=== PATIENT | female | born 1980 | race Caucasian/White ===

== ENCOUNTER → 2022-06-18 16:39 | Outpatient (CLI) | payer MEDICAID, SELFPAY ==
--- NOTE | 2022-06-18 16:30 | RT.EKG_ITS ---
APPROVED REPORT Exam: Resting ECG Reason for Exam: Back/neck pain Patient Location: O HR:72 bpm ECG Measurements Heart Rate 72 AXIS NV 161 P 19 QRSd 83 QRS 60 QT 398 T 43 QTc 436 Conclusion Sinus rhythm...normal P axis, V-rate 50- 99 Normal Electrocardiogram
--- NOTE | 2022-06-18 17:15 | DI.RAD_ITS ---
Exam(s) XR SHOULDER RT COMPLETE 2+V EXAM: XR SHOULDER RT COMPLETE 2+V CLINICAL HISTORY: evaluate for etiology of scapular pain TECHNIQUE: COMPARISON: No exams were available for comparison FINDINGS: Four views were obtained. The cartilaginous joint space of the glenohumeral joint appears fairly wel l maintained. No bony or soft tissue abnormality seen. IMPRESSION: Negative examination of the shoulder. RADIATION DOSE DELIVERED: Total DLP
--- NOTE | 2022-06-18 17:58 | DI.VRAD_ITS ---
PROCEDURE INFORMATION: Exam: XR Right Shoulder Exam date and time: 06/18/2022 5:29 PM Age: 42 years old Clinical indication: Other: Evaluate for etiology of scapular pain TECHNIQUE: Imaging protocol: Radiologic exam of the Right shoulder. Views: 2 or more views. COMPARISON: No relevant prior studies available. FINDINGS: Bones/joints: Normal. Soft tissues: Normal. IMPRESSION: No acute findings. Dictated and Authenticated by: Guanakito Campa MD. Ordering:KAYLA Jones MD
== END ==
LOC: DI.CM 16:40 → DI 17:20
PROVIDERS: Visit Provider Nurse Practitioner Family
DX: R07.89 Other chest pain (principal); M25.511 Pain in right shoulder; M54.2 Cervicalgia
CPT/HCPCS: 73030

== ENCOUNTER 2022-07-11 01:24 | Emergency (ER) | payer MEDICAID, SELFPAY ==
[2022-07-11 01:36] VITALS: BP 155/93; PULSE 98; RESP 18; TEMP 36.6; O2SAT 97
--- NOTE | 2022-07-11 01:58 | ED.GENADUL_ITS ---
Discharge Plan Disposition Patient Disposition: Home Condition: Stable Discharge Details Clinical Impression: Amplified musculoskeletal pain, localized Primary Care Provider: [facility] Provider: Vern Van Home Meds and New Rx's Prescriptions: New oxycodone 5 mg capsule 5 mg PO BID PRN (Reason: pain) Qty: 5 0RF Discharge Instructions Additional Instructions: Our care management team will assist in setting up a primary care appointment for you. May use the provided oxycodone if needed for severe or breakthrough pain. No alcohol, driving, or other sedating medications with this medicine. Remove the Lidoderm patch in 12 hours time. Further Lidoderm patches are available [id number]. Return if you develop a rash, increasing discomfort, or any other acute concerns. Discharge Data Discharge Date/Time-TO BE ENTERED AT DEPARTURE: 07/11/22 02:26 Medical Decision Making 42-year-old female who has been struggling with right neck and shoulder pain for months now. She is seen physical therapy, chiropractic services, deep tissue massage, as well as orthopedics. She has tried Tylenol, ibuprofen, Flexeril, and a single Vicodin for the pain and tonight also tried edible marijuana. She noted at home that she had difficulty urinating. She denies use of antihistamines. Patient arrives to the ER alert, interactive, in some moderate distress due to pain. Her exam is reassuring but does note some tenderness over the right suprascapular region. She does not have any motor or sensory deficit. Urinalysis obtained We will have the patient establish primary care. She is offered a small number of analgesics for home. Given the chronicity of this complaint I do not feel further emergent work-up is indicated at this time. Sign Out No HPI General Mode of arrival: ambulatory . Date/Time Provider Initiated Documentation: 07/11/22 01:36 . Limitations to Documentation: no limitations . Information obtained by: patient . History of Present Illness 42 year old F presents to the emergency department with the chief complaint of Right neck and shoulder pain over months time, described as moderate, Quality is described as constant, and is localized to the neck, right and upper extremity. Patient started experiencing this month(s) and it has been intermittent. No relieving factors improve symptom(s), No exacerbating factors reported . Patient notes denies fever/chills, headaches, rash and shortness of breath. P atient did receive the following treatments prior to arrival, NSAID and other (Marijuana) Related Data Home Medications Medication Instructions Recorded Confirmed oxycodone 5 mg capsule 5 mg PO BID PRN pain #5 caps 07/11/22 Previous Rx's Medication Instructions Recorded oxycodone 5 mg capsule 5 mg PO BID PRN pain #5 caps 07/11/22 Allergies Allergy/AdvReac Type Severity Reaction Status Date / Time No Known Allergies Allergy Verified 07/09/22 13:01 General Stated Complaint: GenMedical MARYANN: 4 Review of Systems Narrative: No new motor weakness or numbness, no rash. Had difficulty urinating at home this evening. Tried marijuana for the pain. 6 systems reviewed and otherwise negative PFSH All Active Problems (Updated 07/11/22 @ 02:07 by Vern Van MD) Cervicalgia (Acute) Radial tunnel syndrome of right upper extremity (Acute) Amplified musculoskeletal pain, localized (Acute) Scapulothoracic bursitis of right shoulder (Acute) Social History Smoking/Tobacco Use Status: Never Smoking risk assessment performed?: Yes Alcohol Intake: current Alcohol Intake frequency: a few times a month Alcohol type: beer and wine Drug use: Rarely Substance use type: marijuana Details: Used THC for pain today Current gender identity: female Do you feel safe at home: Yes Do you feel safe in your relationship?: Yes Exam Narrative Exam Narrative: GEN: awake, alert, oriented 3. Pleasant, well groomed, interactive. HEAD: Normocephalic, atraumatic EYES: PERRL, EOMI NECK: Full ROM, no NUNO, no menigismus CHEST/RESP: Nontender, clear to auscultation bilateral, no wheeze/rhonchi/rales CARDIOVASCULAR: RRR, no murmur, rub farrah. 2+ Rad pulse bilateral ABDOMEN: Soft, nontender, no mass. +Bowel sounds EXT: Full ROM, no edema, no rash. Normal motor function of the upper extremity. Normal sensory testing.tenderness over the right suprascapular region. Neuro: Grossly normal neurologic exam, conversant, interactive. Psych: Speech fluent, thoughts congruent, affect normal Course Vital Signs Vital signs: Vital Signs Temperature 36.6 C 07/11/22 01:36 Pulse 98 H 07/11/22 01:36 Respiratory Rate 18 07/11/22 01:36 Blood Pressure 155/93 H 07/11/22 01:36 Pulse Oximetry 97 07/11/22 01:36 Temperature 36.6 C 07/11/22 01:36 Temperature Source Temporal Artery Scan 07/11/22 01:36 Pulse 98 H 07/11/22 01:36 Respiratory Rate 18 07/11/22 01:36 Respiratory Effort 07/11/22 01:44 Respiratory Depth Normal 07/11/22 01:44 Respiratory Pattern Normal 07/11/22 01:44 Blood Pressure 155/93 H 07/11/22 01:36 Blood Pressure Position Sitting 07/11/22 01:36 Pulse Oximetry 97 07/11/22 01:36 Oxygen Delivery Method Room Air 07/11/22 01:36 Oxygen Flow Rate 0 07/11/22 01:36 Pain Level 7 07/11/22 01:36
[2022-07-11 02:12] LABS: Bilirubin Negative (Negative); Blood Negative (Negative); Clarity Clear (Clear); Glucose Negative (Negative); Ketones Negative (Negative); Leukocyte Esterase Negative (Negative); Nitrite Negative (Negative); Specific Gravity 1.015 (1.005-1.025); Urobilinogen 0.2 EU/dL (Up TO 0.2)
[2022-07-11] MEDS: Lidocaine 5% Patch 1 PATCH TP (02:24)
--- NOTE | 2022-07-11 03:23 | NUR.NOTE ---
Referral to Care Management to establish pcp also for acute back pain sooner rather than later.Nursing Note:
== END 2022-07-11 02:26 | disposition home or self-care (01) ==
PROVIDERS: Emergency Provider Emergency Medicine
DX: M54.2 Cervicalgia (principal); M25.511 Pain in right shoulder
CPT/HCPCS: 99283; 81003; 99284

== ENCOUNTER 2022-11-04 01:37 | Outpatient (CLI) | payer MEDICAID, SELFPAY ==
--- NOTE | 2022-11-04 | DI.MRI_ITS ---
Exam(s) MR UPPER JOINT RT WO EXAM: MR UPPER JOINT RT WO CLINICAL HISTORY: SCAPULAR DYSKINESIS, CERV RAD, HAND NUMBNESS, RT ARM WEAKNESS,. TECHNIQUE: Multiplanar multisequence MRI was performed. COMPARISON: CR,XR XR SHOULDER RT COMPLETE 2+V from 06/18/2022 FINDINGS: BONES: There is no fracture or contusion pattern. JOINTS: Mild degenerative changes are seen at the acromioclavicular joint. The glenohumeral joint is normal. TENDONS: Supraspinatus: Unremarkable. Infraspinatus: Unremarkable. Subscapularis: Unremarkable. Teres Minor: Unremarkable. Biceps and [place]: Unremarkable. MUSCLES: Unremarkable. GLENOID LABRUM: Unremarkable on this noncontrast examination. SOFT TISSUES: Unremarkable. LIGAMENTS: Unremarkable. OTHER: Subacromial and subdeltoid bursae are unremarkable. IMPRESSION: No acute abnormality. No evidence of a rotator cuff or labral tear on this noncontrast examination. DATA REPOSITORY:
--- NOTE | 2022-11-04 | DI.MRI_ITS ---
Exam(s) MR CERVICAL SPINE WO EXAM: MR CERVICAL SPINE WO CLINICAL HISTORY: SCAPULAR DYSKINESIS, CERV RADICULOPATHY, HAND NUMBESS, RT ARM WEAKNESS TECHNIQUE: Multiplanar multisequence MRI of the cervical spine was performed without intravenous con trast. COMPARISON: No exams were available for comparison FINDINGS: BONES: Vertebral body heights are maintained. Intervertebral disc spaces are normal. There is reversa l of the normal cervical lordosis centered at C6-C7. Bone marrow signal intensity is within normal li mits. CERVICAL CORD: Craniovertebral junction is unremarkable. The cervical cord is normal size and signal intensity. SOFT TISSUES: Unremarkable. C2-3: No disc herniation or bulge is identified. No significant central spinal canal or neural forami nal stenosis. C3-4: No disc herniation or bulge is identified. No significant central spinal canal or left neural f oraminal stenosis. There are hypertrophic changes seen of the right facet joints causing mild right neural foraminal narrowing. C4-5: No disc herniation or bulge is identified. Mild hypertrophic changes are seen at the left facet joint causing mild left neural foraminal narrowing. No central spinal canal or right neural foramin al stenosis. C5-6: No disc herniation or bulge is identified. No significant central spinal canal or neural forami nal stenosis C6-7: There is a large right paracentral disc herniation. It compresses the anterior and right aspec t of the spinal cord. It also likely exerts some mass effect on the exiting right nerve root. There remains normal signal in the spinal cord. The AP diameter of the spinal canal is 8.6 mm. No signif icant central spinal canal or neural foraminal stenosis C7-T1: No disc herniation or bulge is identified. No significant central spinal canal or neural heather inal stenosis IMPRESSION: 1. Large right paracentral disc herniation at C6-C7 causing central spinal canal stenosis and likely exerting mass effect on the exiting right nerve root. 2. Degenerative changes of the facets on the right at C3-C4 causing mild right neural foraminal steno sis and on the left at C4-C5 causing mild left neural foraminal stenosis. 3. Reversal of the normal cervical lordosis centered at C6-C7. 4. Normal signal in the spinal cord. DATA REPOSITORY:
--- NOTE | 2022-11-04 | DI.MAMMO_ITS ---
Exam(s) MAMMO SCREENING EXAM: MAMMO SCREENING CLINICAL HISTORY: SCREENING FOR BREAST CANCER , FAM HX Z80.3. TECHNIQUE: Bilateral full field digital CC and MLO mammographic images were obtained with 3D tomosyn thesis and utilizing computer aided detection (CAD). COMPARISON: Available for comparison. FINDINGS: Masses/Architectural Distortion: None seen. Microcalcifications: No suspicious pleomorphic-type are seen. Skin Thickening/Nipple Retraction: None. IMPRESSION: 1. No significant interval change with no specific features of malignancy noted. 2. Unless there is more urgent need, screening mammography is recommended, as per [employer] guidelines. BI-RADS Category 1 - Negative Breast Density - Category C - Heterogeneously dense Breast density category C or D implies that the patient has dense breast tissue. Dense breast tissue is very common and is not abnormal but dense breast tissue can make it harder to find cancer on a ma mmogram. Also, dense breast tissue may increase their breast cancer risk. This information about the result of the mammogram report was provided to the patient to raise their awareness. Use this report when you speak with the patient about their risks for breast cancer, which includes their family hist ory. At that time, you may recommend for more screening tests (Ultrasound or MRI) as they might be us eful based on their risk. A negative radiographic report should not delay biopsy if a dominant or clinically suspicious mass is present. Up to ten percent of cancers are not identified on mammography. A negative report may reinforce clinical impression. Adenosis and dense breasts may obscure an underlying neoplasm. False positive reports average 6 to 10%. Patient will receive a letter notifying them of these results.
== END 2022-11-04 01:57 ==
PROVIDERS: Visit Provider Nurse Practitioner Family
DX: R20.0 Anesthesia of skin (principal); M62.81 Muscle weakness (generalized); M54.12 Radiculopathy, cervical region; M50.123 Cervical disc disorder at C6-C7 level with radiculopathy; M47.22 Other spondylosis with radiculopathy, cervical region; G25.89 Other specified extrapyramidal and movement disorders; M75.51 Bursitis of right shoulder; M79.18 Myalgia, other site; Z12.31 Encounter for screening mammogram for malignant neoplasm of breast; Z80.3 Family history of malignant neoplasm of breast
CPT/HCPCS: 77063; 77067; 72141; 73221

== ENCOUNTER 2023-02-11 02:27 | Outpatient (RCR) | payer MEDICAID, SELFPAY ==
[2023-02-11] MEDS: IRON SUCROSE COMPLEX 300 MG in Normal Saline 250 ML 176.667 MG IVPB (11:17)
== END 2023-02-13 23:59 | disposition home or self-care (01) ==
LOC: INF 02:27
PROVIDERS: Visit Provider Nurse Practitioner Family
DX: D50.0 Iron deficiency anemia secondary to blood loss (chronic) (principal)
CPT/HCPCS: J1756

== ENCOUNTER 2023-02-16 02:23 | Outpatient (RCR) | payer MEDICAID, SELFPAY ==
[2023-02-16] MEDS: IRON SUCROSE COMPLEX 300 MG in Normal Saline 250 ML 176.667 MG IVPB (11:09)
[2023-02-16] MEDS: Normal Saline Flush 10 ML SYR IVP (11:10)
== END 2023-03-16 23:59 | disposition home or self-care (01) ==
LOC: INF 02:23
PROVIDERS: Visit Provider Nurse Practitioner Family
DX: D50.0 Iron deficiency anemia secondary to blood loss (chronic) (principal)
CPT/HCPCS: 96365; 96366; J1756

== ENCOUNTER 2024-06-24 19:17 | Emergency (ER) | payer MEDICAID, SELFPAY ==
[2024-06-24 19:24] VITALS: BP 120/81; PULSE 74; RESP 16; TEMP 36.9; O2SAT 100
[2024-06-24 20:45] VITALS: BP 118/62; PULSE 74
--- NOTE | 2024-06-24 20:54 | ED.GENADUL_ITS ---
Discharge Plan Disposition Patient Disposition: Home Condition: Stable Discharge Details Clinical Impression: Avulsion of fingertip Primary Care Provider: Bryanna Salinas ED Provider: Nolberto Lagunas Home Meds and New Rx's Prescriptions: No Action ibuprofen 200 mg capsule 200 mg PO Q6H PRN Discharge Instructions Instructions: Common Finger Injuries ED Additional Instructions: You were seen in the emergency department for your fingertip avulsion, the wound is clean and there is no active bleeding, there is no intervention needed at this time wrist keep applying simple clean bandages and bacitracin as needed. Please return to the emergency department for any emergent concerns Discharge Data Discharge Date/Time-TO BE ENTERED AT DEPARTURE: 06/24/24 21:29 HPI General Date/Time Provider Initiated Documentation: 06/24/24 20:54 . HPI Narrative: 44 year-old female presents to ED today by POV/ambulating with a chief complaint of fingertip avulsion at home with kitchen knife with onset just prior to arrival. Quality described as L index finger small avulsion, R-hand dominant, no radiation to numbness, active bleeding, other trauma. Severity is described as mild. Palliating factors include direct pressure. Provoking factors include nothing specific. Patient not anticoagulated. Related Data Home Medications ?Medication ?Instructions ?Recorded ?Confirmed ibuprofen 200 mg capsule 200 mg PO Q6H PRN 11/11/22 06/24/24 Allergies Allergy/AdvReac Type Severity Reaction Status Date / Time No Known Allergies Allergy Verified 06/24/24 19:26 General Stated Complaint: Laceration MARYANN: 4 Review of Systems All systems reviewed & are unremarkable except as noted in HPI and below Exam Narrative Exam Narrative: GENERAL APPEARANCE: Well-nourished, non-toxic, awake and alert, atraumatic, no acute distress. SKIN: Warm, pink, dry, tiny left index finger fingertip avulsion-0.25 cm, no active bleeding, neurovascularly intact HEAD: Normocephalic, atraumatic, normal hair distribution for gender/age. EYES: Normal conjunctiva, no exudates on lids/lashes. ENT: Nares patent, no circumoral cyanosis, no facial swelling NECK: Supple, trachea midline, painless cervical ROM. LUNGS/CHEST: Non-labored respirations, normal A/P diameter, symmetrical expansion, no chest wall deformity HEART (CV/PV): Regular rate, L radial pulse 2+, no peripheral edema, no JVD. ABDOMEN: Soft, non-distended, no guarding. MSK: Normal ROM, no swelling/deformity to bilateral UEs or LEs, moving all extremities without weakness, no cyanosis, spine midline without tenderness, normal curvature. NEURO: Mental Status AAOx4 - alert to person, place, time, events No facial droop, no forehead involvement. Motor: No focal weakness - strength 5/5 in bilateral UEs and LEs, proximal and distal, symmetric. Sensory: sensation intact to light touch globally. Gait normal: patient ambulated without ataxia into ED room. PSYCH: euthymic, cooperative, pleasant, appropriate speech Course Vital Signs Vital signs: Vital Signs Temperature 36.9 C 06/24/24 19:24 Pulse 74 06/24/24 19:24 Respiratory Rate 16 06/24/24 19:24 Blood Pressure 120/81 06/24/24 19:24 Pulse Oximetry 100 06/24/24 19:24 Temperature 36.9 C 06/24/24 19:24 Pulse 74 06/24/24 20:45 Respiratory Rate 16 06/24/24 19:24 Respiratory Effort Normal 06/24/24 19:26 Blood Pressure 118/62 06/24/24 20:45 Blood Pressure Mean 80 06/24/24 20:45 Pulse Oximetry 100 06/24/24 19:24 Pain Level 7 06/24/24 19:24 Medical Decision Making This dictation utilizes [id number] dictation software and may contain unedited grammatical errors. 44 year-old female presents to ED today by POV/ambulating with a chief complaint of fingertip avulsion at home with kitchen knife with onset just prior to arrival. Quality described as L index finger small avulsion, R-hand dominant, no radiation to numbness, active bleeding, other trauma. Severity is described as mild. Palliating factors include direct pressure. Provoking factors include nothing specific. Patients' medical history: Negative, otherwise healthy. Family and social history: Noncontributory. Pertinent exam findings / vital signs include tiny left index finger fingertip avulsion-0.25 cm, no active bleeding, neurovascularly intact. Differential / pathologies of concern include laceration, fingertip avulsion. Diagnostic studies of: -None. Interventions of: -None. ED Course/Assessment/Plan: 44-year-old female has a small 0.5 cm fingertip avulsion of left index finger, no active bleeding, only intervention needed is already performed which is a simple bandage. Counseled on strict return criteria for signs of infection. Findings not consistent with significant laceration. Disposition of avulsion of fingertip. Patient verbalized understanding of the plan and return to ED criteria and engaged in shared decision making. Medical Records Medical records reviewed: Yes I reviewed the patient's medical records. Quality:SDOH Health Related Social Needs: No Data to Display PFSH All Active Problems (Updated 06/24/24 @ 20:57 by LEDA Taylor) Avulsion of fingertip (Acute) No-show for appointment (Acute) Cervicalgia (Acute) Radial tunnel syndrome of right upper extremity (Acute) Amplified musculoskeletal pain, localized (Acute) Scapulothoracic bursitis of right shoulder (Acute) Social History Smoking/Tobacco Use Status: Never Smoking risk assessment performed?: Yes Alcohol Intake: current Alcohol Intake frequency: a few times a month Alcohol type: beer and wine Drug use: Rarely Substance use type: marijuana Details: Used THC for pain today Current gender identity: female Do you feel safe at home: Yes Do you feel safe in your relationship?: Yes
== END 2024-06-24 21:29 | disposition home or self-care (01) ==
LOC: ER 21:26
PROVIDERS: Emergency Provider Physician Assistant; PCP Nurse Practitioner
DX: S61.201A Unspecified open wound of left index finger without damage to nail, initial encounter (principal); W26.0XXA Contact with knife, initial encounter; Y93.G1 Activity, food preparation and clean up; Y92.10 Unspecified residential institution as the place of occurrence of the external cause
CPT/HCPCS: 99283

== ENCOUNTER 2025-02-02 01:18 | Outpatient (CLI) | payer MEDICAID, SELFPAY ==
--- NOTE | 2025-02-02 14:07 | TELEFU_ITS ---
Date of service: 02/02/25 Time of Service: 13:00 Nutrition Note NOTE: Priscilla comes in for referred nutrition visit to get help with her lack of progress towards weight loss goals. She let's me know this was a bad last year with needing hysterectomy (still has ovaries) and recovery from that. She shares she was ~202lbs right after surgery and is currently down to ~180lbs with a UBW of 140-150lbs. She would be fine in this range again but ideally would like to achieve goal weight of ~135lbs. From our conversation, it appears Jesús Davies) has a history of being very diet-focused...has done keto, intermittend fasting in the past. She is perplexed as she states she seldom eats out, doesn't drink SSB's and only added sugar might be a couple cookies occasionally. She has [employer] pura and currently uses 1400 calories in it (has gone down to 1200 as well but found that too restrictive). She works on a [employer] and states she gets more than just activity there - it is very laborious. Was vaginal delivery as a baby and was breastfed. Had a twin sister who diet of cancer ~7yrs ago and states she never had weight problems that Cecile experiencing. Takes vitamin D3 and small dose of Mg at night but otherwise no nutr supplements. She does get some indigestion with reported intake of iceburg/shira lettuce but does well with spinach and eats this often. She drinks a ton and states she is always thirsty. She generally has 2 eggs for breakfast with strawberries, 1pc malik kliller bread and maybe small amount of cheese on eggs and jam and butter on toast. Lunch reported as small yesterday involving just a rice cake and not much else Dinner last night was a large lao salad with hummus on the side and lots of nonstarchy veggies in it. MAkes her own salad dressings at home with oil and vinegar. although days differ, I would assess the example she gave me as low in fiber for the day (although evening meal probably had a significant amount) and low in protein for the day (estimate less than 30grams or less between breakfast and lunch) Estimated energy needs and macro recommendations: 1881kcals (suggest 1600 with continued activity) Suggest breakdown of 1600 calories into: 120grams protein (significant amount from plant sources), 26 grams total fat, 220grams total carbohyrates from high fiber/slow digesting starches and fiber rich choices, goal of 35 grams of fiber or more (gradually), and no more than 16grams added sugars. presented sample menu resources for this and suggested Sirena focus on body recomposition instead of weight loss. She does have a bioimpedance scale that links to her phone with current visceral fat level high- suggested high fiber, optimal protein and low fat to address this for health and as the type of weight she would benefit from losing. She has my contact info should she want follow ups or need questions answered or wants to trouble-shoot any roadbloacks. Time Spent in Nutritional Counseling and Treatment: 25min
--- NOTE | 2025-02-14 10:35 | W.NUTRFU ---
Date of service: 02/02/25 Time of Service: 13:00 Nutrition Note Time Spent in Nutritional Counseling and Treatment: 25 min
== END 2025-02-02 01:19 | disposition home or self-care (01) ==
LOC: DS 01:19
PROVIDERS: PCP Nurse Practitioner; Visit Provider Dietitian, Registered
DX: E66.9 Obesity, unspecified (principal)
CPT/HCPCS: 00123; 97802

== ENCOUNTER 2025-03-15 03:04 | Outpatient (CLI) | payer MEDICAID, SELFPAY ==
--- NOTE | 2025-03-15 14:45 | DI.RAD_ITS ---
Exam(s) XR FOOT RT COMPLETE EXAM: XR FOOT RT COMPLETE CLINICAL HISTORY: Right foot pain M79.671. TECHNIQUE: 2D digital imaging was performed. Three views. COMPARISON: No exams were available for comparison FINDINGS: BONES: No acute fracture is present. No bony destructive lesion is seen. Ossicles adjacent to cuboid and navicular. JOINTS: No dislocation present. No significant degenerative changes. High plantar arch. SOFT TISSUE: Normal. IMPRESSION: Unremarkable radiographs of the right foot. DATA REPOSITORY: RADIATION DOSE DELIVERED:
== END 2025-03-15 03:24 ==
LOC: DI 03:04
PROVIDERS: PCP Nurse Practitioner; Visit Provider Podiatrist
DX: M79.671 Pain in right foot (principal)
CPT/HCPCS: 73630